=== PATIENT | female | born 1955 | race Caucasian/White ===

== ENCOUNTER 2018-02-23 15:29 | Emergency (ER) | payer MEDICARE ==
[~2018-02-23] VITALS: Ht 165.1 cm; Wt 79.4 kg
[2018-02-23] MEDS ORDERED: ATENOLOL50 MG PO (16:12)
[2018-02-23] MEDS ORDERED: SIMVASTATIN20 MG PO (16:12)
[2018-02-23] MEDS ORDERED: LISINOPRIL20 MG PO (16:12)
[2018-02-23] MEDS ORDERED: PAROXETINE7.5 MG PO (16:13)
[2018-02-23] MEDS ORDERED: TRAZODONE HCL50 MG PO (16:14)
[2018-02-23] MEDS ORDERED: MAXALT10 MG PO (16:14)
--- OUTSIDE RECORDS SUMMARY | 2018-02-23 23:08 | XMS ---
PreManage Notification: MAZIN ARTIS Security Multi Line Claims Adjuster Events No recent Security Events currently on file CRITERIA MET - [facility] - 2 Visits in 30 Days CARE PROVIDERS RADHA MCCABE Nurse Practitioner: Family Current PHONE: [phone] RADHA MCCABE Primary Care Current PHONE: [phone] Tyree has no Care Guidelines for this patient. Amanda VISIT COUNT (12 MO.) [address] TOTAL 2 NOTE: Visits indicate total known visits. ED/C VISIT TRACKING (12 MO.) 02/23/2018 15:[address] [facility] TYPE: Emergency COMPLAINT: - L LEG NUMBNESS/NO INJURY [facility]: Emergency INPATIENT VISIT TRACKING (12 MO.) No inpatient visits to display in this time frame [email or web address]
--- NOTE | 2018-02-25 21:01 | EKG ---
[facility] [address] [facility] [place], [place] [address] Signed Normal sinus rhythm Low voltage QRS Borderline ECG No previous ECGs available Confirmed by JILL WILLETT DO ([id number]) on 02/25/2018 9:01:21 PM Electronically Signed By: JILL WILLETT DO 02/25/182100 PATIENT NAME: MAZIN ARTIS Electrocardiogram DATE OF : 53 PHYSICIAN: JILL WILLETT DO REPORT #: [id number] REPORT IS CONFIDENTIAL AND NOT TO BE RELEASED WITHOUT AUTHORIZATION
== END 2018-02-23 22:48 | disposition short-term general hospital (02) ==
LOC: ED 15:29
DX: I63.9 Cerebral infarction, unspecified (principal); I10 Essential (primary) hypertension; Z79.899 Other long term (current) drug therapy
CPT/HCPCS: 70450; 70496; 70498; 71045; 80053; 85025; 85610; 93005; 93010; 99285; Q9967